=== PATIENT | female | born 1955 | race Caucasian/White ===

== ENCOUNTER → 2017-02-16 | Outpatient (CLI) | payer BC ==
[~2017-02-16] MED LIST: LEVOTHYROXINE 0.125 MG; THROID
[2017-02-16 07:30] LABS: BASOPHILS % 0.8 % (0.0-2.0); EOSINOPHILS % 2.5 % (0.0-5.0); HEMATOCRIT. 39.1 % (36.0-48.0); HEMOGLOBIN. 13.4 g/dL (12.0-16.0); LYMPHOCYTES % 39.6 % (20.0-50.0); MEAN CORPUSCULAR HEMOGLOBIN 31.1 pg (28.0-32.0); MEAN CORPUSCULAR VOLUME 90.5 fL (81.0-99.0); MONOCYTES % 6.2 % (2.0-8.0); NEUTROPHILS % 50.9 % (40.0-76.0); PLATELET 169 x1000/uL (130-400); RED BLOOD CELL COUNT 4.32 mill/uL (4.2-5.4)
[2017-02-16 08:12] LABS: CARBON DIOXIDE 25 mEq/L (21-32); CHLORIDE 111 mEq/L (98-107); HDL CHOLESTEROL 42 mg/dL (40-59); LDL CHOLESTEROL 143 mg/dL (5-100); TOTAL IRON BINDING CAPACITY 346 ug/dL (250-450)
[2017-02-16 09:58] LABS: VITAMIN B12 SERUM 289 pg/mL (211-911)
[2017-02-16 13:58] LABS: FERRITIN 48 ng/mL (10-291)
== END | disposition home or self-care (01) ==
LOC: LAB 06:57
PROVIDERS: ATTEND Internal Medicine Geriatric Medicine
DX: Z00.01 Encounter for general adult medical examination with abnormal findings (principal); E78.5 Hyperlipidemia, unspecified; R73.09 Other abnormal glucose
CPT/HCPCS: 36415; 80053; 80061; 82306; 82607; 82728; 83036; 83540; 83550; 84443; 85025; 86592

== ENCOUNTER 2017-03-11 06:09 | Emergency (ER) | payer BC ==
[~2017-03-11] VITALS: Ht 162.6 cm; Wt 75.0 kg
[2017-03-11] MEDS ORDERED: CLINDAMYCIN HCL 150MG CAPSULE PO STA (08:20)
[2017-03-11] MEDS ORDERED: ACETAMINOPHEN 325MG TABLET PO ONE (08:30)
[2017-03-11 08:54] VITALS: BP 126/73
[2017-03-11] MEDS ORDERED: TETANUS, DIPHTHERIA, PERTUSSIS VAC/PF 0.5ML (>7YR OLD) IM ONE (09:30)
== END 2017-03-11 08:57 | disposition home or self-care (01) ==
LOC: ER 06:44
DX: S61.252A Open bite of right middle finger without damage to nail, initial encounter (principal); E03.9 Hypothyroidism, unspecified; W55.01XA Bitten by cat, initial encounter; Y93.89 Activity, other specified; Y99.8 Other external cause status; Y92.89 Other specified places as the place of occurrence of the external cause; Z88.0 Allergy status to penicillin; Z88.1 Allergy status to other antibiotic agents; Z90.49 Acquired absence of other specified parts of digestive tract
CPT/HCPCS: 90471; 90715; 99283

== ENCOUNTER 2017-06-03 07:56 | Emergency (ER) | payer BC ==
[~2017-06-03] VITALS: Ht 162.6 cm; Wt 73.0 kg
[2017-06-03] MEDS ORDERED: DEXAMETHASONE 10 MG/ML VIAL IM ONE (08:30)
[2017-06-03] MEDS ORDERED: ALBUTEROL (0.083%) 2.5MG/3ML NEB HHN ONE (08:30)
[2017-06-03 09:35] VITALS: BP 132/74
== END 2017-06-03 09:45 | disposition home or self-care (01) ==
LOC: ER 08:08
DX: J40 Bronchitis, not specified as acute or chronic (principal); E03.9 Hypothyroidism, unspecified; Z90.49 Acquired absence of other specified parts of digestive tract; Z88.0 Allergy status to penicillin
CPT/HCPCS: 71046; 94640; 99284; J7611; J1100

== ENCOUNTER → 2017-08-31 | Outpatient (CLI) | payer BC ==
[2017-08-31 08:12] LABS: CHLORIDE 107 mEq/L (98-107)
[2017-08-31 08:29] LABS: LDL CHOLESTEROL 118 mg/dL (5-100)
[2017-08-31 08:31] LABS: HDL CHOLESTEROL 28 mg/dL (40-59); T4 FREE 0.89 ng/dL (0.76-1.46)
== END ==
LOC: LAB 07:30
PROVIDERS: ATTEND Internal Medicine Geriatric Medicine
DX: E03.9 Hypothyroidism, unspecified (principal); E78.5 Hyperlipidemia, unspecified
CPT/HCPCS: 36415; 80053; 80061; 84439; 84443; 84481

== ENCOUNTER → 2018-03-27 | Outpatient (CLI) | payer BC | END | disposition home or self-care (01) | LOC: LAB 06:47 | PROVIDERS: ATTEND Internal Medicine Geriatric Medicine | DX: M47.816 Spondylosis without myelopathy or radiculopathy, lumbar region (principal) | CPT/HCPCS: 36415; 72114; 85651; 86038; 86140; 86430 ==

== ENCOUNTER → 2018-04-05 | Outpatient (CLI) | payer BC | END | disposition home or self-care (01) | LOC: RAD 10:59 | PROVIDERS: ATTEND Internal Medicine Geriatric Medicine | DX: M25.552 Pain in left hip (principal) | CPT/HCPCS: 73502 ==

== ENCOUNTER → 2018-04-25 | Outpatient (CLI) | payer BC | END | disposition home or self-care (01) | LOC: MRI 06:46 | PROVIDERS: ATTEND Internal Medicine Geriatric Medicine | DX: M51.26 Other intervertebral disc displacement, lumbar region (principal); M48.07 Spinal stenosis, lumbosacral region | CPT/HCPCS: 72148 ==

== ENCOUNTER → 2018-06-13 | Outpatient (CLI) | payer BC ==
[2018-06-13 10:53] LABS: BASOPHILS % 0.5 % (0.0-2.0); HEMATOCRIT. 39.4 % (36.0-48.0); HEMOGLOBIN. 13.7 g/dL (12.0-16.0); LYMPHOCYTES % 36.7 % (20.0-50.0); MEAN CORPUSCULAR HEMOGLOBIN 31.4 pg (28.0-32.0); MEAN CORPUSCULAR VOLUME 90.5 fL (81.0-99.0); MEAN PLATELET VOLUME 8.9 fl (7.4-10.4); MONOCYTES % 5.2 % (2.0-8.0); NEUTROPHILS % 55.6 % (40.0-76.0); PLATELET 209 x1000/uL (130-400); RED BLOOD CELL COUNT 4.35 mill/uL (4.2-5.4); RED CELL DISTRIBUTION WIDTH 13.7 % (11.6-14.6)
[2018-06-13 11:30] LABS: CHLORIDE 106 mEq/L (98-107)
[2018-06-13 11:39] LABS: LDL CHOLESTEROL 192 mg/dL (5-100)
[2018-06-13 11:40] LABS: HDL CHOLESTEROL 46 mg/dL (40-59)
== END | disposition home or self-care (01) ==
LOC: LAB 10:32
PROVIDERS: ATTEND Internal Medicine Geriatric Medicine
DX: E78.1 Pure hyperglyceridemia (principal); E03.9 Hypothyroidism, unspecified
CPT/HCPCS: 36415; 80061; 84443

== ENCOUNTER → 2018-08-08 | Outpatient (CLI) | payer BC ==
[~2018-08-08] MED LIST changes: +LEVO125T PO
[2018-08-08 10:03] LABS: BASOPHILS % 0.7 % (0.0-2.0); EOSINOPHILS % 1.7 % (0.0-5.0); HEMATOCRIT. 38.4 % (36.0-48.0); HEMOGLOBIN. 13.2 g/dL (12.0-16.0); LYMPHOCYTES % 40.4 % (20.0-50.0); MEAN CORPUSCULAR HEMOGLOBIN 31.5 pg (28.0-32.0); MEAN CORPUSCULAR VOLUME 91.5 fL (81.0-99.0); MEAN PLATELET VOLUME 8.7 fl (7.4-10.4); MONOCYTES % 4.7 % (2.0-8.0); NEUTROPHILS % 52.5 % (40.0-76.0); PLATELET 184 x1000/uL (130-400); RED CELL DISTRIBUTION WIDTH 13.7 % (11.6-14.6)
[2018-08-08 10:11] LABS: CHLORIDE 109 mEq/L (98-107)
[2018-08-08 10:14] LABS: INR 1.1; PARTIAL THROMBOPLASTIN TIME 27.8 sec (23.4-31.0); PROTHROMBIN TIME 10.9 sec (9.6-11.0)
[2018-08-08 10:16] LABS: CLARITY URINE CLEAR (CLEAR); COLOR URINE YELLOW (YELLOW); KETONES URINE NEGATIVE (NEGATIVE); LEUKOCYTE ESTERASE URINE NEGATIVE (NEGATIVE); NITRITE URINE NEGATIVE (NEGATIVE); OCCULT BLOOD URINE NEGATIVE (NEGATIVE); PROTEIN URINE NEGATIVE (NEGATIVE); SPECIFIC GRAVITY URINE 1.022 (1.005-1.030); UROBILINOGEN URINE 0.2 E.U./dL (0.2-1.0)
== END | disposition home or self-care (01) ==
LOC: LAB 09:32
PROVIDERS: ATTEND Neurological Surgery
DX: J98.11 Atelectasis (principal); M51.26 Other intervertebral disc displacement, lumbar region
CPT/HCPCS: 36415; 71046; 86850; 86900; 93005

== ENCOUNTER 2018-08-16 06:06 | Inpatient (IN) | payer BC ==
[~2018-08-16] VITALS: Ht 162.6 cm; Wt 74.8 kg
[~2018-08-16 06:06] MED LIST changes: +LACTATED RINGERS 1,000 ML IV SCH; -LEVOTHYROXINE 0.125 MG; -THROID
[2018-08-16] MEDS ORDERED: THROMBIN (BOVINE) 5000 UNITS/VIAL TOP ONE (07:51)
[2018-08-16] MEDS ORDERED: LIDOCAINE HCL/EPINEPHRINE 1%-EPI 1:100,000 20 ML VIAL ONE (07:51)
[2018-08-16] MEDS ORDERED: NORMAL SALINE 0.9% 10 ML SYR ONE (07:51)
[2018-08-16] MEDS ORDERED: BACITRACIN 50,000 UNITS/VIAL ONE (07:52)
[2018-08-16] MEDS ORDERED: HYDROMORPHONE HCL/PF 2MG/ML (OR) ONE (09:06)
[2018-08-16] MEDS ORDERED: ROCURONIUM BROMIDE 10MG/ML VIAL 5ML IV ONE (09:06)
[2018-08-16] MEDS ORDERED: MIDAZOLAM HCL 2 MG/2 ML VIAL ONE (09:06)
[2018-08-16] MEDS ORDERED: PROPOFOL 200MG/20ML VIAL IV ONE (09:06)
[2018-08-16] MEDS ORDERED: FENTANYL CITRATE/PF 50MCG/ML 5ML VIAL ONE (09:06)
[2018-08-16] MEDS ORDERED: LIDOCAINE HCL/PF 1% 10 MG/ML 5ML VIAL ONE (09:07)
[2018-08-16] MEDS ORDERED: CLINDAMYCIN 900 MG PREMIX 50 ML IV ONE (09:16)
[2018-08-16] MEDS ORDERED: GLYCOPYRROLATE 0.2 MG/ML 2ML VIAL ONE (10:27)
[2018-08-16] MEDS ORDERED: ONDANSETRON HCL 4MG/2ML INJ IV PRN (10:45)
[2018-08-16] MEDS ORDERED: KETOROLAC 30MG/ML VIAL ONE (10:54)
[2018-08-16] MEDS ORDERED: EPHEDRINE SULFATE 50MG/ML VIAL ONE (10:54)
[2018-08-16] MEDS ORDERED: NALOXONE INJ IV PRN (11:30)
[2018-08-16] MEDS ORDERED: DIPHENHYDRAMINE INJ IV PRN (11:30)
[2018-08-16] MEDS ORDERED: ONDANSETRON INJ IV PRN (11:30)
[2018-08-16] MEDS ORDERED: HYDROMORPHONE PCA 10MG/50ML IV PRN (11:30)
[2018-08-16 12:00] VITALS: BP 92/55
[2018-08-16 16:00] VITALS: BP 94/50
[2018-08-16 16:46] VITALS: BP 92/55
[2018-08-16] MEDS: CLINDAMYCIN 600MG PREMIX 50 ML IV SCH (17:27)
[2018-08-16] MEDS: DEXT 5%/LACTATED RINGERS 1,000 ML IV SCH (17:27)
[2018-08-16 20:00] VITALS: BP 117/63
[2018-08-17] VITALS: BP 122/60
[2018-08-17] MEDS: CLINDAMYCIN 600MG PREMIX 50 ML IV SCH ×2 (03:05→09:18)
[2018-08-17] MEDS: DEXT 5%/LACTATED RINGERS 1,000 ML IV SCH ×2 (03:47→15:17)
[2018-08-17 08:00] VITALS: BP 105/49
[2018-08-17 12:00] VITALS: BP 101/57
[2018-08-17 16:00] VITALS: BP 127/60
[2018-08-17 20:00] VITALS: BP 112/56
[2018-08-18] VITALS (7 sets, daily range): BP systolic 101–127; BP diastolic 52–67
[2018-08-18] MEDS: DEXT 5%/LACTATED RINGERS 1,000 ML IV SCH ×2 (05:22→11:48)
[2018-08-18] MEDS: LEVOTHYROXINE SODIUM 125MCG TABLET PO SCH (06:29)
[2018-08-18] MEDS: HYDROCODONE/ACETAMINOPHEN 5/325MG TABLET PO PRN ×2 (17:13→21:47)
[2018-08-19] MEDS: HYDROCODONE/ACETAMINOPHEN 5/325MG TABLET PO PRN ×2 (02:40→08:14)
[2018-08-19 04:11] VITALS: BP 114/59
[2018-08-19] MEDS: LEVOTHYROXINE SODIUM 125MCG TABLET PO SCH (06:22)
[2018-08-19 08:00] VITALS: BP 129/54
[2018-08-19 10:12] VITALS: BP 135/84
[2018-08-19 11:33] LABS: CLARITY URINE CLEAR (CLEAR); COLOR URINE YELLOW (YELLOW); KETONES URINE NEGATIVE (NEGATIVE); LEUKOCYTE ESTERASE URINE NEGATIVE (NEGATIVE); NITRITE URINE NEGATIVE (NEGATIVE); OCCULT BLOOD URINE TRACE (NEGATIVE); PH URINE 7.5 (4.5-8.0); PROTEIN URINE NEGATIVE (NEGATIVE); SPECIFIC GRAVITY URINE 1.006 (1.005-1.030); UROBILINOGEN URINE 0.2 E.U./dL (0.2-1.0)
[2018-08-19 12:00] VITALS: BP 153/76
== END 2018-08-19 12:55 | disposition home or self-care (01) | DRG 519 ==
LOC: OR 06:06 → MICUSO 06:07 → 6EST 14:33
PROVIDERS: ADMIT Internal Medicine Geriatric Medicine; ATTEND Neurological Surgery
PROC: 0SB20ZZ Excision of Lumbar Vertebral Disc, Open Approach (ICD-10-PCS; principal; 2018-08-16)
PROC: 01NB0ZZ Release Lumbar Nerve, Open Approach (ICD-10-PCS; 2018-08-16)
DX: S33.0XXA Traumatic rupture of lumbar intervertebral disc, initial encounter (principal); G82.20 Paraplegia, unspecified; X58.XXXA Exposure to other specified factors, initial encounter; Y93.89 Activity, other specified; Y92.89 Other specified places as the place of occurrence of the external cause; Y99.8 Other external cause status
CPT/HCPCS: 36415; 72100; 76000; 86850; 86900; 88304; 88311; 95925; 95926; 95928; 95929; 97116; 97162; 97166; 97530; 97535; C1893; J1170; J1885; J2250; J2405; J2704; J3010; J3490; J7121

== ENCOUNTER → 2018-11-21 | Outpatient (CLI) | payer SELFPAY ==
[~2018-11-21] MED LIST changes: -LACTATED RINGERS 1,000 ML IV SCH
[2018-11-21 11:13] LABS: BASOPHILS % 0.6 % (0.0-2.0); EOSINOPHILS % 2.6 % (0.0-5.0); HEMATOCRIT. 40.7 % (36.0-48.0); HEMOGLOBIN. 13.8 g/dL (12.0-16.0); LYMPHOCYTES % 33.5 % (20.0-50.0); MEAN CORPUSCULAR HEMOGLOBIN 30.2 pg (28.0-32.0); MEAN CORPUSCULAR VOLUME 88.8 fL (81.0-99.0); NEUTROPHILS % 58.3 % (40.0-76.0); PLATELET 161 x1000/uL (130-400); RED BLOOD CELL COUNT 4.58 mill/uL (4.2-5.4); RED CELL DISTRIBUTION WIDTH 13.7 % (11.6-14.6)
[2018-11-21 11:20] LABS: PARTIAL THROMBOPLASTIN TIME 27.5 sec (23.4-31.0); PROTHROMBIN TIME 10.4 sec (9.6-11.0)
== END | disposition home or self-care (01) ==
LOC: LAB 10:20
PROVIDERS: ATTEND Neurological Surgery
DX: M54.5 Low back pain (principal)
CPT/HCPCS: 36415

== ENCOUNTER → 2018-11-24 | Outpatient (CLI) | payer BC ==
[2018-11-24 11:09] LABS: BASOPHILS % 0.5 % (0.0-2.0); EOSINOPHILS % 1.8 % (0.0-5.0); HEMOGLOBIN. 13.2 g/dL (12.0-16.0); LYMPHOCYTES % 37.1 % (20.0-50.0); MEAN CORPUSCULAR HEMOGLOBIN 30.4 pg (28.0-32.0); MEAN CORPUSCULAR VOLUME 89.7 fL (81.0-99.0); MEAN PLATELET VOLUME 8.4 fl (7.4-10.4); MONOCYTES % 7.5 % (2.0-8.0); NEUTROPHILS % 53.1 % (40.0-76.0); PLATELET 129 x1000/uL (130-400); RED BLOOD CELL COUNT 4.35 mill/uL (4.2-5.4); RED CELL DISTRIBUTION WIDTH 13.8 % (11.6-14.6)
== END | disposition home or self-care (01) ==
LOC: MRI 07:11
PROVIDERS: ATTEND Neurological Surgery
DX: M48.061 Spinal stenosis, lumbar region without neurogenic claudication (principal); M51.26 Other intervertebral disc displacement, lumbar region
CPT/HCPCS: 36415; 72158; 85025; 85651; A9577